=== PATIENT | female | born 1950 | race Caucasian/White ===

== ENCOUNTER 2020-12-01 14:05 | Inpatient (IN) | payer MEDICARE, BC ==
[~2020-12-01] VITALS: Ht 165.1 cm; Wt 66.0 kg
--- NOTE | 2020-12-01 14:36 | NUR ---
according to the family - he has been non-verbal for the last 3 weeks
--- NOTE | 2020-12-01 14:36 | NUR ---
daughter called 911; he mentation has been gettomh worse - she did not woke up today - lethatgic per report
[2020-12-01] MEDS ORDERED: IV NS 0.9% 500 ML BAG IV ONE (15:30)
--- NOTE | 2020-12-01 15:30 | NUR ---
MOVE SHEET SUBMITTED.
--- NOTE | 2020-12-01 15:53 | NUR ---
urine collected and sent to the lab
[2020-12-01] MEDS ORDERED: ABEM150T PO (16:08)
[2020-12-01] MEDS ORDERED: VENL25TA4 PO (16:08)
[2020-12-01] MEDS ORDERED: APIX5TAB PO (16:08)
[2020-12-01] MEDS ORDERED: MIRT-74 PO (16:08)
[2020-12-01] MEDS ORDERED: PANT40TA49 PO (16:08)
[2020-12-01] MEDS ORDERED: FULV250D2 IM (16:08)
[2020-12-01] MEDS ORDERED: METH1TAB69 MT (16:08)
[2020-12-01] MEDS ORDERED: ONDA4TAB11 PO (16:08)
[2020-12-01 16:11] LABS: BILIRUBIN,URINE NEGATIVE (NEGATIVE); COLOR,URINE YELLOW (YELLOW); LEUKOCYTE ESTERASE ,URINE MODERATE (NEGATIVE); NITRITE, URINE POSITIVE (NEGATIVE); PROTEIN,URINE TRACE mg/dl (NEGATIVE); UGLUCOSE NEGATIVE (NEGATIVE); UROBILINOGEN,URINE 0.2 EU/dL (0.2)
[2020-12-01 16:28] LABS: BACTERIA,URINE 2+ /HPF (None Seen); SQUAMOUS EPITHELIAL CELL,UR 0-2 /HPF (None Seen); WBC,URINE 51-80 /HPF (0-3)
[2020-12-01 16:52] LABS: BASOPHILS % (AUTO) 0.4 % (0.0-2.0); EOSINOPHILS % (AUTO) 0.5 % (0.0-6.0); LYMPHOCYTES # (AUTO) 0.6 K/uL (0.8-4.8); LYMPHOCYTES % (AUTO) 26.3 % (20.0-44.0); MEAN CORPUSCULAR HGB CONC 35 g/dl (31.0-36.0); MEAN CORPUSCULAR VOLUME 112 fL (82-100); MONOCYTES # (AUTO) 0.1 K/uL (0.1-1.30); MONOCYTES % (AUTO) 3.8 % (2.0-12.0); NEUTROPHILS # (AUTO) 1.6 K/uL (1.8-8.9); PLATELET COUNT (AUTO) 57 K/uL (150-450); WHITE BLOOD COUNT (AUTO) 2.3 K/uL (4.3-11.0)
[2020-12-01 16:57] LABS: RED BLOOD CELL COUNT(AUTO) 1.59 MIL/uL (4.0-5.2)
[2020-12-01 16:59] LABS: HEMATOCRIT 18 % (33-45); HEMOGLOBIN 6.3 g/dL (11.5-14.8)
[2020-12-01 17:04] LABS: CALCIUM, SERUM 8.1 mg/dL (8.5-10.1); CREATININE 0.6 mg/dL (0.6-1.3); POTASSIUM 3.6 mmol/L (3.5-5.1)
[2020-12-01 17:23] LABS: ALBUMIN 2.1 g/dL (3.4-5.0); BILIRUBIN,DIRECT 0.1 mg/dL (0.0-0.2); BILIRUBIN,TOTAL 0.5 mg/dL (0.2-1.0); TOTAL PROTEIN, SERUM 5.6 g/dL (6.4-8.2)
[2020-12-01 17:26] LABS: BAND % (MANUAL) 4 % (0.0-5.0); EOSINOPHILS % (MANUAL) 1 % (0-4); LYMPHOCYTES % (MANUAL) 25 % (16-48); MONOCYTES % (MANUAL) 2 % (0-11.0); NEUTROPHILS % (MANUAL) 67 (42-76); REACTIVE LYMPHOCYTES 1 % (0-0)
[2020-12-01] MEDS ORDERED: CEFTRIAXONE 1GM BAG (ER ONLY) 1 GM/50 ML PIGGYBACK IV ONE (17:30)
[2020-12-01] MEDS ORDERED: HYDROCODONE/APAP 5/325MG TABLET PO PRN (18:00)
[2020-12-01] MEDS ORDERED: MAGNESIUM HYDROXIDE 30 ML UDC PO PRN (18:00)
[2020-12-01] MEDS ORDERED: ONDANSETRON HCL/PF 4 MG/2 ML VIAL IVP PRN (18:00)
[2020-12-01] MEDS ORDERED: Z GUARD REMEDY 2 OZ OINT TP PRN (18:00)
[2020-12-01] MEDS ORDERED: ACETAMINOPHEN 325 MG TABLET PO PRN (18:00)
[2020-12-01] MEDS ORDERED: MAG HYDROX/AL HYDROX/SIMETH 30 ML UDC PO PRN (18:00)
--- NOTE | 2020-12-01 18:05 | NUR ---
GOT BED 329
--- NOTE | 2020-12-01 18:12 | NUR ---
REPORT GIVEN TO NURSE DAUGHERTY FROM MS/TELE FLOOR
[2020-12-01] MEDS ORDERED: CEFTRIAXONE 1GM BAG (ER ONLY) 50 ML IV ONE (18:13)
[2020-12-01] MEDS: PIPERACILLIN /TAZOBACTAM 4.5 G in IV D5W 50 ML IV SCH (19:04)
--- NOTE | 2020-12-01 19:33 | NUR ---
REPORT GIVEN TO NURSE ALVAREZ
--- NOTE | 2020-12-01 19:56 | NUR ---
PT WAS TRANSFERRED TO THIRD FLOOR UNDER ACLS
[2020-12-01] MEDS ORDERED: VANCOMYCIN 1 GM in IV D5W 250 ML IV SCH (20:00)
[2020-12-01 20:26] VITALS: BP 101/69
--- NOTE | 2020-12-01 20:30 | NUR ---
ADMISSION 70 years old female, unable to provide meaningful Hx. Ej/son in law at bedside. Patient is awake, non verbal. Skin checked done. Harry buttock open wounds, patient is Total care. Turned and repositioned, made comfortable in bed. On supplemental Oxygen at 2L via NC. Fall/ skin precaution maintained.
[2020-12-01 20:41] VITALS: BP 101/69
[2020-12-01] MEDS: VANCOMYCIN HCL 0.75 GM in IV D5W 250 ML IV SCH (21:27)
--- NOTE | 2020-12-01 21:59 | NUR ---
CONSENT BLOOD TRANSFUSION H/H 6.3 PLT 57 PRBC 1 unit was ordered. Called Jadon Hamilton/daughter, consented blood transfusion. Witnessed by GONZÁLEZ Jin.
[2020-12-01] MEDS ORDERED: MIRTAZAPINE 15 MG TABLET PO SCH (22:00)
--- NOTE | 2020-12-01 22:20 | NUR ---
REMERON NON ADMINISTERED Patient spit out Medication Remeron, medication wasted.
[2020-12-01 23:06] VITALS: BP 97/58
--- NOTE | 2020-12-01 23:17 | NUR ---
1 UNIT PRBC Blood transfusion administration record verified with 2RN. VS taken, recorded prior starting blood transfusion. Will monitor patient closely
[2020-12-01 23:31] VITALS: BP 108/60
--- NOTE | 2020-12-01 23:33 | NUR ---
MONITORING/BLOOD TRANSFUSING ON PROGRESS BP in the low 100's. Patient appears comfortable in bed, no moaning, no facial grimacing. Temp curved down. Temp 98.9F [place]. Will cont to monitor.
[2020-12-02] VITALS (7 sets, daily range): BP systolic 90–107; BP diastolic 51–58
[2020-12-02] MEDS: PIPERACILLIN /TAZOBACTAM 4.5 G in IV D5W 50 ML IV SCH ×4 (01:06→17:46)
--- NOTE | 2020-12-02 02:01 | NUR ---
BLOOD TRANSFUSION COMPLETED End of blood transfusion, no adverse side effect. Will cont to monitor closely.
--- NOTE | 2020-12-02 06:31 | NUR ---
END OF SHIFT REPORT Patient non verbal, open eyes. On supplemental Oxygen at 2L via NC. Sinus rhythm in the Tele monitor HR 79. BUE edema. RICHARD midline intact, on IV Vancomycin and Zosyn. Temp curved down. Turned and repositioned, alda buttocks open wound. Wound consult for wound management and treatment. s/p 1 unit PRBC with no adverse side effect. Fall, skin precaution maintained. Patient is Total care. Will endorse to oncoming RN.
--- NOTE | 2020-12-02 06:55 | NUR ---
FAMILY CONCERN Received call from Shahana/patients daughter. Per daughter she blended all the food and feeds her mother at home. Diet changed changed to Puree Soft per family's request. Also daughter states that Tumor marker was 27.29 and request to check here at the hospital. Will endorse to oncoming RN.
--- NOTE | 2020-12-02 07:12 | NUR ---
FACILITIES MAINTENANCE ENGINEER OPENING NOTE RECEIVED PATIENT ALERT AND NON VERBAL, PATIENT DOES NOT APPEAR TO BE IN PAIN AND DISCOMFORT AT THIS TIME. IV LINE AT RIGHT UPPER ARM MIDLINE AND RIGHT HAND G20 SALINE LOCK, PATENT AND INTACT, ON SALINE LOCK. WITH OXYGEN AT 2LPM VIA NASAL CANULA. SAFETY MEASURES ENSURED WITH BED LOCKED AND AT LOWEST POSITION. CALL LIGHT WITHIN REACH AT ALL TIMES. WILL CONTINUE TO MONITOR PATIENT.
[2020-12-02 07:21] LABS: THYROID STIMULATING HORMONE 3.043 uIU/mL (0.358-3.74)
[2020-12-02 07:22] LABS: CALCIUM, SERUM 8.1 mg/dL (8.5-10.1); CREATININE 0.7 mg/dL (0.6-1.3); MAGNESIUM 1.6 mg/dL (1.8-2.4); PHOSPHORUS 3.8 mg/dL (2.5-4.9); POTASSIUM 3.2 mmol/L (3.5-5.1)
[2020-12-02 07:30] LABS: BASOPHILS % (AUTO) 0.8 % (0.0-2.0); EOSINOPHILS % (AUTO) 0.7 % (0.0-6.0); HEMATOCRIT 23 % (33-45); HEMOGLOBIN 7.9 g/dL (11.5-14.8); LYMPHOCYTES # (AUTO) 0.5 K/uL (0.8-4.8); LYMPHOCYTES % (AUTO) 24.1 % (20.0-44.0); MEAN CORPUSCULAR HGB CONC 34 g/dl (31.0-36.0); MEAN CORPUSCULAR VOLUME 102 fL (82-100); MONOCYTES # (AUTO) 0.1 K/uL (0.1-1.30); MONOCYTES % (AUTO) 3.3 % (2.0-12.0); NEUTROPHILS # (AUTO) 1.5 K/uL (1.8-8.9); NEUTROPHILS % (AUTO) 71.1 % (43.0-81.0); RED BLOOD CELL COUNT(AUTO) 2.27 MIL/uL (4.0-5.2); WHITE BLOOD COUNT (AUTO) 2.1 K/uL (4.3-11.0)
[2020-12-02] MEDS ORDERED: PANTOPRAZOLE 40 MG TABLET.DR PO SCH (07:30)
--- NOTE | 2020-12-02 07:42 | NUR ---
WOUND CARE CONSULT: PT PRESENTS WITH MULTIPLE SKIN ISSUES INCLUDING SWELLING WITH DISCOLORATION TO RT ARM, DISCOLORATION TO CHEST (WITH SKIN TEAR RT CHEST)AND LEFT ARM, AND UNSTAGEABLE PRESSURE ULCER TO SACRUM WHICH EXTENDS TO BILATERAL BUTTOCKS, ALL PRESENT ON ADMISSION. RECOMMENDATIONS MADE FOR SKIN PROTECTION AND WOUND CARE. DISCUSSED WITH NURSING STAFF. DIETARY CONSULT IN PLACE. DR MIGUEL RODRIGUEZ NOTIFIED OF SURGICAL CONSULT FOR WOUND. MD IN AGREEMENT WITH PLAN OF CARE. FIRST STEP LOW AIRLOSS MATTRESS IS ON ORDER. Addendum: 12/02/20 at 0744 by OTTO ADAMES WNDNU Amended: Links added.
[2020-12-02 07:46] LABS: PLATELET COUNT (AUTO) 46 K/uL (150-450)
--- NOTE | 2020-12-02 08:05 | NUR ---
FRAME TENDER NOTE WITH PLATELET OF 46. DR. RIVERA NOTIFIED WITH NO NEW ORDER AT THIS TIME. WILL CONTINUE TO MONITOR PATIENT.
[2020-12-02] MEDS: VANCOMYCIN HCL 0.75 GM in IV D5W 250 ML IV SCH ×2 (08:28→20:44)
[2020-12-02] MEDS: PANTOPRAZOLE 40 MG TABLET.DR PO SCH ×2 (08:29→17:46)
[2020-12-02] MEDS: VENLAFAXINE 25 MG TABLET PO SCH (08:45)
[2020-12-02] MEDS: APIXABAN 5 MG TABLET PO SCH ×2 (09:00→17:00)
[2020-12-02] MEDS: HYDROGEL DRESSING 90 GM TUBE TP SCH (09:00)
--- NOTE | 2020-12-02 09:45 | NUR ---
RN NOTE ELIQUIS NTO ADMINISTERED BECAUSE OF LOW PLATELET. DR. RIVERA NOTIFIED. WILL WAIT FO MD INSTRUCTION.
[2020-12-02] MEDS ORDERED: POTASSIUM CHLORIDE 20 MEQ POWDER PACKET PO ONE (10:00)
[2020-12-02 10:59] LABS: BAND % (MANUAL) 2 % (0.0-5.0); LYMPHOCYTES % (MANUAL) 26 % (16-48); MONOCYTES % (MANUAL) 5 % (0-11.0); NEUTROPHILS % (MANUAL) 67 (42-76)
--- NOTE | 2020-12-02 11:00 | NUR ---
AUTOMATION CONTROLS SPECIALIST NOTE SEEN BY DR. RIVERA
[2020-12-02] MEDS: Magnesium 1GM/D5W 100ML PREMIX 100 ML IV SCH ×2 (11:13→13:07)
[2020-12-02] MEDS: POTASSIUM CL. PREMIX PERIPHER. 50 ML IV SCH ×4 (13:12→16:42)
--- NOTE | 2020-12-02 14:58 | NUR ---
SS note SS requested to discuss plan of care. Pt is a 70-year-old, female. CESARIO met with pt at her bedside in the med-surg unit. Pt was non-verbal and did not open her eyes. Pt was resting. CESARIO contacted pt's daughter, Shahana Hamilton, , to discuss pt's plan of care. Shahana stated that she lives with the pt at their private residence located at [address] [place] [address]. Pt is bedbound. Per daughter, pt currently has 24h caregivers as well as a wound care MD and RN who care for the pt. CESARIO discussed D/C plans with Shahana. Shahana does not want the pt to be D/C to a facility and for the pt to return to her prior living arrangement at home with 24h caregivers. No further SS intervention at this time, however, SS will remain available as needed.
--- NOTE | 2020-12-02 19:00 | NUR ---
CASH SURRENDER CALCULATOR CLOSING NOTE PATIENT ALERT AND NON VERBAL, PATIENT DOES NOT APPEAR TO BE IN PAIN AND DISCOMFORT AT THIS TIME. IV LINE AT RIGHT UPPER ARM MIDLINE AND RIGHT HAND G20 SALINE LOCK, PATENT AND INTACT, ON SALINE LOCK. WITH OXYGEN AT 2LPM VIA NASAL CANULA. SAFETY MEASURES ENSURED WITH BED LOCKED AND AT LOWEST POSITION. CALL LIGHT WITHIN REACH AT ALL TIMES. WILL ENDORSE PATIENT FOR CONTINUITY OF CARE.
--- NOTE | 2020-12-02 20:11 | NUR ---
SEAFOOD TECHNOLOGY SPECIALIST OPENING NOTE PT A/OX1; OPENS EYES; APHASIC. ON O2 2LPM VIA NC; TOLERATING WELL WITH NO SOB. EXTERNAL CARDIAC TELE MONITOR READS SR/ST 101. NO S/SX OF PAIN OR DISCOMFORT AT THIS TIME. RICHARD MIDLINE; PATENT AND INTACT. R HAND #20G S/; PATENT AND INTACT. ALL NEEDS MET. SAFETY MEASURES IN PLACE: BED IS LOWEST LOCKED POSITION, SR UPX2, CALL LIGHT WITHIN EASY REACH. PT IN STABLE CONDITION, WILL CONTINUE PLAN OF CARE.
[2020-12-02] MEDS: MIRTAZAPINE 30 MG PO SCH (22:40)
[2020-12-03] VITALS: BP 98/53
[2020-12-03] MEDS: PIPERACILLIN /TAZOBACTAM 4.5 G in IV D5W 50 ML IV SCH ×4 (00:06→17:19)
[2020-12-03 04:00] VITALS: BP 135/59
--- NOTE | 2020-12-03 06:11 | NUR ---
WATCHER AUTOMAT LONG GOODS CLOSING NOTE PT A/OX1; OPENS EYES; APHASIC. ON O2 2LPM VIA NC; TOLERATING WELL WITH NO SOB. EXTERNAL CARDIAC TELE MONITOR READS SR/ST 95. NO S/SX OF PAIN OR DISCOMFORT AT THIS TIME. RICHARD MIDLINE; PATENT AND INTACT. R HAND #20G S/; PATENT AND INTACT. ALL NEEDS MET. WOUND CARE TX KEPT C/D/I/. SAFETY MEASURES IN PLACE: BED IN LOWEST LOCKED POSITION, SR UPX2, CALL LIGHT WITHIN EASY REACH BED ALARM ON. PT IN STABLE CONDITION, WILL ENDORSE PLAN OF CARE TO ONCOMING MORNING RN.
[2020-12-03 06:34] LABS: BASOPHILS % (AUTO) 0.9 % (0.0-2.0); EOSINOPHILS % (AUTO) 0.8 % (0.0-6.0); HEMATOCRIT 23 % (33-45); HEMOGLOBIN 7.7 g/dL (11.5-14.8); LYMPHOCYTES # (AUTO) 0.6 K/uL (0.8-4.8); LYMPHOCYTES % (AUTO) 29.2 % (20.0-44.0); MEAN CORPUSCULAR HGB CONC 34 g/dl (31.0-36.0); MEAN CORPUSCULAR VOLUME 104 fL (82-100); MONOCYTES # (AUTO) 0.1 K/uL (0.1-1.30); NEUTROPHILS # (AUTO) 1.3 K/uL (1.8-8.9); NEUTROPHILS % (AUTO) 64.1 % (43.0-81.0); RED BLOOD CELL COUNT(AUTO) 2.17 MIL/uL (4.0-5.2)
[2020-12-03 06:41] LABS: PLATELET COUNT (AUTO) 44 K/uL (150-450)
--- NOTE | 2020-12-03 06:43 | NUR ---
PLT 44; WILL ENDORSE TO NEXT SHIFT
[2020-12-03 07:12] LABS: ALBUMIN 1.8 g/dL (3.4-5.0); BILIRUBIN,TOTAL 0.5 mg/dL (0.2-1.0); CREATININE 0.6 mg/dL (0.6-1.3); MAGNESIUM 2.2 mg/dL (1.8-2.4); TOTAL PROTEIN, SERUM 5.2 g/dL (6.4-8.2)
[2020-12-03 07:23] LABS: BAND % (MANUAL) 12 % (0.0-5.0); LYMPHOCYTES % (MANUAL) 19 % (16-48); MONOCYTES % (MANUAL) 6 % (0-11.0); NEUTROPHILS % (MANUAL) 63 (42-76)
--- NOTE | 2020-12-03 08:12 | NUR ---
CATERPILLAR OPERATOR OPENING NOTE RECEIVED PATIENT IN BED, ASLEEP. PATIENT ON O2 2LPM VIA NC; TOLERATING WELL WITH NO SOB. EXTERNAL CARDIAC TELE MONITOR READS SR 81. NO S/SX OF PAIN OR DISCOMFORT AT THIS TIME. RICHARD MIDLINE; PATENT AND INTACT. R HAND #20G S/; PATENT AND INTACT. SAFETY MEASURES IN PLACE: BED IN LOWEST LOCKED POSITION, SR UPX2, CALL LIGHT WITHIN EASY REACH BED ALARM ON. WILL CONTINUE TO MONITOR PATIENT.
[2020-12-03] MEDS: APIXABAN 5 MG TABLET PO SCH ×2 (08:33→16:09)
[2020-12-03] MEDS: VANCOMYCIN HCL 0.75 GM in IV D5W 250 ML IV SCH ×2 (08:37→19:35)
[2020-12-03] MEDS: HYDROGEL DRESSING 90 GM TUBE TP SCH (08:37)
[2020-12-03] MEDS: PANTOPRAZOLE 40 MG TABLET.DR PO SCH ×3 (08:37→16:20)
[2020-12-03] MEDS: VENLAFAXINE 25 MG TABLET PO SCH (08:45)
[2020-12-03] MEDS ORDERED: IOHEXOL-300 100 ML VIAL IV ONE (14:01)
--- NOTE | 2020-12-03 18:44 | NUR ---
PROP CUTTER CLOSING NOTE PATIENT IN BED, ASLEEP, EASILY AWAKEN. PATIENT ON O2 2LPM VIA NC; TOLERATING WELL WITH NO SOB. EXTERNAL CARDIAC TELE MONITOR READS SR 99. NO S/SX OF PAIN OR DISCOMFORT AT THIS TIME. RICHARD MIDLINE; PATENT AND INTACT. R HAND #20G S/; PATENT AND INTACT. ALL NEEDS ATTENDED DURING THE DAY. SAFETY MEASURES IN PLACE: BED IN LOWEST LOCKED POSITION, SR UPX2, CALL LIGHT WITHIN EASY REACH BED ALARM ON. WILL ENDORSE TO FRAME PULLEY MORTISING MACHINE OPERATOR NURSE FOR MERARI.
[2020-12-03 20:00] VITALS: BP 98/51
[2020-12-03] MEDS: MIRTAZAPINE 30 MG PO SCH (21:22)
[2020-12-04] VITALS: BP 101/62
[2020-12-04] MEDS: PIPERACILLIN /TAZOBACTAM 4.5 G in IV D5W 50 ML IV SCH ×5 (00:13→23:47)
[2020-12-04 04:00] VITALS: BP 101/49
--- NOTE | 2020-12-04 07:00 | NUR ---
Patient is alert to voice and touch, eyes open, can respond to simple questions. A&Ox1 only. Pt has been SR on monitor approx. 88bpm. RICHARD midline still intact and patent. No signs of respiratory or cardiac distress. denies pain or discomfort. kept clean and dry. Turned q2h, offloading. Tolerating IV ABX well.
[2020-12-04 07:39] LABS: BASOPHILS % (AUTO) 1.2 % (0.0-2.0); EOSINOPHILS % (AUTO) 1.2 % (0.0-6.0); HEMATOCRIT 23 % (33-45); HEMOGLOBIN 7.8 g/dL (11.5-14.8); LYMPHOCYTES # (AUTO) 0.5 K/uL (0.8-4.8); LYMPHOCYTES % (AUTO) 25.5 % (20.0-44.0); MEAN CORPUSCULAR HGB CONC 34 g/dl (31.0-36.0); MEAN CORPUSCULAR VOLUME 105 fL (82-100); MONOCYTES # (AUTO) 0.1 K/uL (0.1-1.30); MONOCYTES % (AUTO) 4.9 % (2.0-12.0); NEUTROPHILS # (AUTO) 1.3 K/uL (1.8-8.9); NEUTROPHILS % (AUTO) 67.2 % (43.0-81.0)
[2020-12-04 07:43] LABS: PLATELET COUNT (AUTO) 46 K/uL (150-450)
[2020-12-04 08:33] VITALS: BP 122/60
[2020-12-04] MEDS: VANCOMYCIN HCL 0.75 GM in IV D5W 250 ML IV SCH ×2 (08:41→20:27)
[2020-12-04] MEDS: VENLAFAXINE 25 MG TABLET PO SCH ×2 (08:42→10:54)
[2020-12-04] MEDS: PANTOPRAZOLE 40 MG TABLET.DR PO SCH ×3 (08:42→17:08)
[2020-12-04] MEDS: APIXABAN 5 MG TABLET PO SCH ×2 (08:50→16:14)
[2020-12-04 09:05] LABS: ALANINE AMINOTRANSFERASE 31 U/L (12-78); ALBUMIN 1.8 g/dL (3.4-5.0); ALKALINE PHOSPHATASE 37 U/L (46-116); ASPARTATE AMINOTRANSFERASE 12 U/L (15-37); BILIRUBIN,TOTAL 0.6 mg/dL (0.2-1.0); CALCIUM, SERUM 8.1 mg/dL (8.5-10.1); CARBON DIOXIDE 24 mmol/L (21-32); CHLORIDE 105 mmol/L (98-107); CREATININE 0.5 mg/dL (0.6-1.3); GLUCOSE 127 mg/dL (74-106); MAGNESIUM 2.1 mg/dL (1.8-2.4); PHOSPHORUS 2.9 mg/dL (2.5-4.9); POTASSIUM 3.1 mmol/L (3.5-5.1); SODIUM SERUM 138 mmol/L (136-145); TOTAL PROTEIN, SERUM 5.3 g/dL (6.4-8.2); UREA NITROGEN, BLOOD 5 mg/dL (7-18)
[2020-12-04] MEDS: HYDROGEL DRESSING 90 GM TUBE TP SCH (12:49)
[2020-12-04] MEDS: PROSOURCE / PROSTAT (PYXIS) 30 ML UDC PO SCH ×2 (16:21→17:00)
[2020-12-04 16:41] VITALS: BP 95/45
--- NOTE | 2020-12-04 19:00 | NUR ---
JIGMAKER CLOSING NOTE RECEIVED PATIENT ALERT AND NON VERBAL, PATIENT DOES NOT APPEAR TO BE IN PAIN AND DISCOMFORT AT THIS TIME. IV LINE AT RIGHT UPPER ARM MIDLINE AND RIGHT HAND G20 SALINE LOCK, PATENT AND INTACT, ON SALINE LOCK. WITH OXYGEN AT 2LPM VIA NASAL CANULA. SAFETY MEASURES ENSURED WITH BED LOCKED AND AT LOWEST POSITION. CALL LIGHT WITHIN REACH AT ALL TIMES. WILL ENDORSE PATIENT FOR CONTINUITY OF CARE.
--- NOTE | 2020-12-04 19:30 | NUR ---
VP HUMAN RESOURCES OPENING NOTE RECEIVED PT ALERT AND NON VERBAL. A/O X1. PT IS ON 2LPM O2 VIA NC, TOLERATING WELL. NO SOB OR S/S OF RESPIRATORY DISTRESS NOTED. PT ON EXTERNAL MALE IMPERSONATOR READING ST AT 101 BPM. PT HAS NO C/O OF PAIN SUCH FACIAL GRIMACING AT THIS TIME. IV ACCESS IN RICHARD MIDLINE AND RIGHT HAND #20 SALINE-LOCKED, INTACT AND PATENT. SAFETY PRECAUTIONS MAINTAINED. BED IN LOWEST LOCKED POSITION, HOB ELEVATED, SIDE RAILS UP X2. CALL LIGHT AND TABLE WITHIN REACH. WILL CONTINUE WITH PLAN OF CARE.
[2020-12-04 20:33] VITALS: BP 115/52
[2020-12-04] MEDS: MIRTAZAPINE 30 MG PO SCH (21:05)
[2020-12-05] VITALS (9 sets, daily range): BP systolic 110–142; BP diastolic 48–92
[2020-12-05] MEDS: PIPERACILLIN /TAZOBACTAM 4.5 G in IV D5W 50 ML IV SCH ×2 (05:17→12:20)
--- NOTE | 2020-12-05 06:48 | NUR ---
HUMAN FACTORS ERGONOMIST CLOSING NOTE PT IS IN BED, ALERT AND NON VERBAL. A/O X1. PT IS ON 2LPM O2 VIA NC, TOLERATING WELL. NO SOB OR S/S OF RESPIRATORY DISTRESS NOTED. PT ON EXTERNAL SOLAR ENERGY SPECIALIST READING ST AT 103 BPM. PT HAS NO C/O OF PAIN SUCH FACIAL GRIMACING AT THIS TIME. IV ACCESS IN RICHARD MIDLINE AND RIGHT HAND #20 SALINE-LOCKED, INTACT AND PATENT. ALL NEEDS HAVE BEEN MET. WOUND CARE ADMINISTERED PER ORDER. PT REPOSITIONED Q2H AND PRN. SAFETY PRECAUTIONS MAINTAINED AT ALL TIMES. BED IN LOWEST LOCKED POSITION, HOB ELEVATED, SIDE RAILS UP X2. CALL LIGHT AND TABLE WITHIN REACH. WILL ENDORSE TO ONCOMING NURSE FOR MERARI.
[2020-12-05 07:05] LABS: BASOPHILS % (AUTO) 0.8 % (0.0-2.0); EOSINOPHILS % (AUTO) 1.6 % (0.0-6.0); HEMATOCRIT 22 % (33-45); HEMOGLOBIN 7.6 g/dL (11.5-14.8); LYMPHOCYTES # (AUTO) 0.5 K/uL (0.8-4.8); LYMPHOCYTES % (AUTO) 24.2 % (20.0-44.0); MEAN CORPUSCULAR HGB CONC 34 g/dl (31.0-36.0); MEAN CORPUSCULAR VOLUME 104 fL (82-100); MONOCYTES # (AUTO) 0.1 K/uL (0.1-1.30); MONOCYTES % (AUTO) 4.6 % (2.0-12.0); NEUTROPHILS # (AUTO) 1.3 K/uL (1.8-8.9); NEUTROPHILS % (AUTO) 68.8 % (43.0-81.0); RED BLOOD CELL COUNT(AUTO) 2.17 MIL/uL (4.0-5.2)
--- NOTE | 2020-12-05 07:30 | NUR ---
LEFT VOICEMAIL FOR PT'S DTR, JAQUELINE, AT [phone], TO REQUEST VERBAL CONSENT VIA PHONE FOR PT TO HAVE MRI BRAIN WWO CONTRAST ON 12/05/20.
--- NOTE | 2020-12-05 07:43 | NUR ---
RN OPENING NOTES Patient seen comfortably lying in bed, no apparent distress noted, no grimacing, no SOB, respirations even and unlabored. Safety precautions in place, brakes locked, side rails up X 2, call light left within reach, will monitor closely for any changes.
--- NOTE | 2020-12-05 07:50 | NUR ---
Received a call from labs stating that patient's WBC is 1.9 and platelet 47, no apparent distress noted with patient, afebrile, no s/s of bleeding at this time, breathing even and unlabored, MD made aware, waiting for orders.
[2020-12-05 07:53] LABS: WHITE BLOOD COUNT (AUTO) 1.9 K/uL (4.3-11.0)
[2020-12-05 07:54] LABS: PLATELET COUNT (AUTO) 47 K/uL (150-450)
[2020-12-05] MEDS: VANCOMYCIN HCL 0.75 GM in IV D5W 250 ML IV SCH (08:18)
[2020-12-05] MEDS: APIXABAN 5 MG TABLET PO SCH ×2 (09:00→16:36)
[2020-12-05 09:59] LABS: ALBUMIN 1.9 g/dL (3.4-5.0); BILIRUBIN,TOTAL 0.6 mg/dL (0.2-1.0); CALCIUM, SERUM 8.5 mg/dL (8.5-10.1); CREATININE 0.6 mg/dL (0.6-1.3); MAGNESIUM 1.9 mg/dL (1.8-2.4); POTASSIUM 3.1 mmol/L (3.5-5.1); TOTAL PROTEIN, SERUM 5.5 g/dL (6.4-8.2)
[2020-12-05] MEDS: FOLIC ACID 1 MG TABLET PO SCH (10:44)
[2020-12-05] MEDS: VENLAFAXINE 25 MG TABLET PO SCH (10:44)
[2020-12-05] MEDS: PROSOURCE / PROSTAT (PYXIS) 30 ML UDC PO SCH ×3 (10:45→16:33)
[2020-12-05] MEDS: PANTOPRAZOLE 40 MG TABLET.DR PO SCH ×2 (10:48→16:33)
[2020-12-05 10:51] LABS: BAND % (MANUAL) 2 % (0.0-5.0); EOSINOPHILS % (MANUAL) 2 % (0-4); LYMPHOCYTES % (MANUAL) 22 % (16-48); MONOCYTES % (MANUAL) 10 % (0-11.0); NEUTROPHILS % (MANUAL) 64 (42-76)
[2020-12-05] MEDS: HYDROGEL DRESSING 90 GM TUBE TP SCH (10:57)
[2020-12-05] MEDS: MEROPENEM 1 G in IV NS 0.9% 100 ML IV SCH ×2 (13:53→21:22)
[2020-12-05] MEDS ORDERED: GADOTERATE MEGLUMINE 5 MMOL/10 ML VIAL IV ONE (15:25)
[2020-12-05] MEDS ORDERED: ACETAMINOPHEN 325 MG TABLET PO ONE (17:30)
[2020-12-05] MEDS ORDERED: diphenhydrAMINE HCL 50 MG/ML VIAL IV ONE (17:30)
--- NOTE | 2020-12-05 18:38 | NUR ---
Received a call from Dr. Lara stating to ask the daughter if she wants to changed POLST to DNR, DNI. Called daughter Shahana Hamilton (phone: [phone]) and she said she wants to change her mother's POLST to DNR / DNI, explained briefly what DNR/DNI means and she verbalized understanding and gratitude and wishes to proceed. Doctor Stew Askew made aware of the situation and he said okay to put order in. Name and number of daughter given to .
--- NOTE | 2020-12-05 18:55 | NUR ---
RN CLOSING NOTES Patient lying in bed, AO X 1, non-verbal, breathing even and unlabored, no SOB, no grimacing noted, no apparent distress noted. Eliquis not given today due to platelet level was 47, no s/s of bleeding, MD made aware of the situation. All needs anticipated, kept clean and dry, call light left within reach, safety precautions in place, brakes locked, side rails up X 2, will endorse to next shift for continuity of care.
[2020-12-05 19:23] LABS: D-DIMER 4.16 mg/L(FEU (0.17-0.50)
--- NOTE | 2020-12-05 19:33 | NUR ---
OPENING RN NOTES Patient lying in bed, AO X 1, non-verbal, breathing even and unlabored, no SOB, no grimacing noted, no apparent distress noted. All needs anticipated, kept clean and dry, call light left within reach, safety precautions in place, brakes locked, side rails up X 2, will CONTINUE TO MONITOR.
[2020-12-05] MEDS: HEPARIN INFUSION/D5W 500 ML IV PRN (20:30)
--- NOTE | 2020-12-05 20:37 | NUR ---
RN NOTES CONTACTED DR DIAZ REGARDING HEPARIN DRIP TO DUE PT LOW APTT DR DIAZ WAS ASKED IF WE SHOULD GIVE THE PRBC AND PLT BEFORE STARTING HEPARIN PER DR DIAZ OKAY TO START HEPARIN FIRST AND GIVE BLOOD ITS AVAILABLE. HEPARIN DRIP. WILL CONTINUE TO MONITOR. Addendum: 12/05/20 at 2121 by LUDWIG STAHL RN HEPARIN DRIP STARTED ON THE WRIST NOT THE UPPER ARM. WILL CONTINUE TO MONITOR.
[2020-12-05 22:06] LABS: OCCULT BLOOD STOOL NEGATIVE (NEGATIVE)
[2020-12-05] MEDS ORDERED: diphenhydrAMINE HCL 50 MG/ML VIAL ONE (22:08)
[2020-12-05] MEDS: MIRTAZAPINE 30 MG PO SCH (23:46)
--- NOTE | 2020-12-05 23:54 | NUR ---
RN NOTES BLOOD TRANSFUSION STARTED. PT INITIAL VITAL SIGNS TAKEN WITHIN NORMAL LIMITS SCHEDULED MEDICATIONS NEED TO BE GIVEN BEFORE TRANSFUSION WERE ADMINISTERED AND TOLERATED WELL. PT WAS ALSO STARTED ON A HEPARIN TRIP AT 2235. PT IS ALSO DUE FOR A PLATELET TRANSFUSION PLATELETS NOT AVAILABLE AT THIS TIME. WILL CONTINUE TO MONITOR PT THROUGHOUT TRANSFUSION AND SHIFT AND MONITORED FOR ANY ADVERSE EFFECTS.
[2020-12-06] VITALS (10 sets, daily range): BP systolic 111–142; BP diastolic 54–83
--- NOTE | 2020-12-06 02:05 | NUR ---
RN NOTES BLOOD TRANSFUSION DONE. VITAL SIGN WITHIN NORMAL LIMITS AFEBRILE AT THIS TIME WILL. CONTINUE TO MONITOR.
[2020-12-06] MEDS: MEROPENEM 1 G in IV NS 0.9% 100 ML IV SCH ×3 (05:13→21:58)
--- NOTE | 2020-12-06 06:36 | NUR ---
RN NOTES Patient lying in bed, AO X 1, non-verbal, breathing even and unlabored, no SOB, no grimacing noted, no apparent distress noted. All needs anticipated, kept clean and dry, call light left within reach, safety precautions in place, brakes locked, side rails up X 2. PT CURRENTLY ON HEPARIN DRIP RUNNING AT 1250 UNITS/HR AWAITING APTT RESULT TO RECALCULATE DOSEWILL ENDORSE TO DYA SHIFT NURSE., WILL ENDORSE CARE TO DAY SHIFT NURSE.
[2020-12-06 07:01] LABS: BASOPHILS % (AUTO) 1.4 % (0.0-2.0); EOSINOPHILS % (AUTO) 1.3 % (0.0-6.0); HEMATOCRIT 26 % (33-45); HEMOGLOBIN 8.9 g/dL (11.5-14.8); LYMPHOCYTES # (AUTO) 0.6 K/uL (0.8-4.8); LYMPHOCYTES % (AUTO) 24.3 % (20.0-44.0); MEAN CORPUSCULAR HGB CONC 35 g/dl (31.0-36.0); MEAN CORPUSCULAR VOLUME 99 fL (82-100); MONOCYTES # (AUTO) 0.1 K/uL (0.1-1.30); MONOCYTES % (AUTO) 5.4 % (2.0-12.0); NEUTROPHILS # (AUTO) 1.6 K/uL (1.8-8.9); NEUTROPHILS % (AUTO) 67.6 % (43.0-81.0); WHITE BLOOD COUNT (AUTO) 2.3 K/uL (4.3-11.0)
[2020-12-06 07:25] LABS: ALANINE AMINOTRANSFERASE 32 U/L (12-78); ALBUMIN 1.8 g/dL (3.4-5.0); ALKALINE PHOSPHATASE 36 U/L (46-116); ASPARTATE AMINOTRANSFERASE 14 U/L (15-37); BILIRUBIN,TOTAL 0.5 mg/dL (0.2-1.0); CALCIUM, SERUM 8.5 mg/dL (8.5-10.1); CARBON DIOXIDE 26 mmol/L (21-32); CHLORIDE 103 mmol/L (98-107); CREATININE 0.5 mg/dL (0.6-1.3); GLUCOSE 139 mg/dL (74-106); MAGNESIUM 1.8 mg/dL (1.8-2.4); PHOSPHORUS 3.1 mg/dL (2.5-4.9); SODIUM SERUM 136 mmol/L (136-145); TOTAL PROTEIN, SERUM 5.4 g/dL (6.4-8.2); UREA NITROGEN, BLOOD 5 mg/dL (7-18)
--- NOTE | 2020-12-06 07:30 | NUR ---
ANGLESMITH HELPER NOTES PT IN BED, RESTING, OPENS EYES, NON VERBAL, NO SIGN OF PAIN, NOT IN DISTRESS, ON HEPARIN DRIP, MONITORED FOR BLEEDING, KEPT WARM AND COMFORTABLE IN BED.
[2020-12-06 07:42] LABS: PLATELET COUNT (AUTO) 49 K/uL (150-450)
[2020-12-06 08:07] LABS: IMMUNOGLOBULIN A, SERUM 65 mg/dL (64-422); IMMUNOGLOBULIN G, SERUM 466 mg/dL (586-1602); IMMUNOGLOBULIN M, SERUM 49 mg/dL (26-217)
[2020-12-06] MEDS: VENLAFAXINE 25 MG TABLET PO SCH (08:48)
[2020-12-06] MEDS: PROSOURCE / PROSTAT (PYXIS) 30 ML UDC PO SCH ×3 (08:48→16:19)
[2020-12-06] MEDS: HYDROGEL DRESSING 90 GM TUBE TP PRN (08:48)
[2020-12-06] MEDS: PANTOPRAZOLE 40 MG TABLET.DR PO SCH ×2 (08:48→16:19)
[2020-12-06] MEDS: FOLIC ACID 1 MG TABLET PO SCH (08:48)
[2020-12-06 09:07] LABS: CARBOHYDRATE AG 19-9 11 U/mL (0-35)
[2020-12-06] MEDS: HYDROGEL DRESSING 90 GM TUBE TP SCH (09:18)
[2020-12-06 10:07] LABS: *ANA ANTI-CENTROMERE B AB <0.2 AI (0.0-0.9); *ANA ANTI-DNA(DS) AB, QN <1 IU/mL (0-9); *ANA ANTI-JO-1 <0.2 AI (0.0-0.9); *ANA ANTICHROMATIN ANTIBODY <0.2 AI (0.0-0.9); *ANA RNP ANTIBODIES <0.2 AI (0.0-0.9); *ANA SJOGREN'S ANTI-SS-A <0.2 AI (0.0-0.9); *ANA SJOGREN'S ANTI-SS-B <0.2 AI (0.0-0.9); *ANAANTI-SCLERODERMA-70 AB <0.2 AI (0.0-0.9); *ANASMITH AB <0.2 AI (0.0-0.9)
[2020-12-06] MEDS ORDERED: POTASSIUM CHLORIDE 10 MEQ/50 ML PREMIXED IVPB FOR PERIPHERAL LINE IV SCH (11:30)
[2020-12-06] MEDS ORDERED: POTASSIUM CHLORIDE 20 MEQ TAB.PRT.SR PO SCH (11:30)
[2020-12-06 13:01] LABS: BAND % (MANUAL) 1 % (0.0-5.0); EOSINOPHILS % (MANUAL) 1 % (0-4); LYMPHOCYTES % (MANUAL) 31 % (16-48); MONOCYTES % (MANUAL) 4 % (0-11.0); NEUTROPHILS % (MANUAL) 63 (42-76)
[2020-12-06] MEDS: POTASSIUM CL. PREMIX PERIPHER. 50 ML IV SCH ×6 (15:31→21:57)
[2020-12-06] MEDS: HEPARIN INFUSION/D5W 500 ML IV PRN (18:04)
--- NOTE | 2020-12-06 18:31 | NUR ---
PRACTICING DERMATOLOGIST NOTES PT IN BED, AWAKE, NON VERBAL, NO SIGN OF PAIN, NOT IN DISTRESS, WITH ONGOING HEPARIN INFUSION, NO S/S OF BLEEDING, VISITED BY FAMILY, ASSISTED WITH MEALS, SEEN BY DR. BAILEY TODAY, TURNED AND REPOSITIONED Q2 HOURS, KEPT CLEAN, DRY AND COMFORTABLE.
--- NOTE | 2020-12-06 19:42 | NUR ---
RN NOTE RECEIVED ORDERS FROM DR. SCHROEDER TO ADMINISTER KEPPRA 1000MG/10ML IV X1, THEN KEPPRA 500MG/5ML IV Q12H. ORDERS READ BACK, ENTERED, AND CARRIED OUT. WILL CONTINUE TO MONITOR PT CLOSELY.
--- NOTE | 2020-12-06 20:00 | NUR ---
COLLECTION CLERK OPENING NOTE RECEIVED PT AWAKE IN BED. A/O X1, NON-VERBAL. PT IS ON 2LPM O2 VIA NC TOLERATING WELL. NO SOB OR S/S OF RESPIRATORY DISTRESS NOTED. PT HAS NO S/O PAIN SUCH FACIAL GRIMACING NOTE. PT ON EXTERNAL QUENCHING CAR OPERATOR READING ST AT 102 BPM. IV ACCESS IN RICHARD MIDLINE AND RIGHT HAND #20 WITH ONGOING HEPARIN INFUSION. NO S/S OF BLEEDING NOTED. SAFETY PRECAUTIONS MAINTAINED. BED IN LOWEST LOCKED POSITION, HOB ELEVATED, SIDE RAILS UP X2. CALL LIGHT AND TABLE WITHIN REACH. WILL CONTINUE WITH PLAN OF CARE.
--- NOTE | 2020-12-06 20:40 | NUR ---
RN NOTE PT'S TEMP NOTED AT 100.4. COOLING MEASURES RENDERED. WILL CONTINUE TO MONITOR.
[2020-12-06] MEDS ORDERED: LEVETIRACETAM (500MG) 1,000 MG in IV NS 0.9% 100 ML IV ONE (21:00)
--- NOTE | 2020-12-06 21:30 | NUR ---
RN NOTE RECHECKED PT'S TEMP. TEMP NOTED AT 98.9. WILL CONTINUE TO MONITOR PT CLOSELY.
[2020-12-06] MEDS: MIRTAZAPINE 30 MG PO SCH (21:34)
[2020-12-07 00:03] VITALS: BP 126/58
[2020-12-07 03:39] VITALS: BP 111/61
[2020-12-07] MEDS: MEROPENEM 1 G in IV NS 0.9% 100 ML IV SCH ×3 (04:05→20:23)
[2020-12-07 06:41] LABS: CALCIUM, SERUM 8.7 mg/dL (8.5-10.1); CREATININE 0.6 mg/dL (0.6-1.3); POTASSIUM 3.8 mmol/L (3.5-5.1)
--- NOTE | 2020-12-07 07:00 | NUR ---
AUDIO DIRECTOR CLOSING NOTE PT IS AWAKE IN BED. A/O X1, NON-VERBAL. PT IS ON 2LPM O2 VIA NC TOLERATING WELL. NO SOB OR S/S OF RESPIRATORY DISTRESS NOTED. PT HAS NO S/O PAIN SUCH FACIAL GRIMACING NOTE. PT ON EXTERNAL LOADING UNIT OPERATOR READING ST AT 101 BPM. IV ACCESS IN RICHARD MIDLINE AND RIGHT HAND #20 WITH ONGOING HEPARIN INFUSION. NO S/S OF BLEEDING NOTED. ALL NEEDS HAVE BEEN MET. SAFETY PRECAUTIONS MAINTAINED AT ALL TIMES. BED IN LOWEST LOCKED POSITION, HOB ELEVATED, SIDE RAILS UP X2. CALL LIGHT AND TABLE WITHIN REACH. WILL ENDORSE TO ONCOMING NURSE FOR MERARI.
[2020-12-07 07:07] LABS: *SPE A/G RATIO 0.8 (0.7-1.7); *SPE ALPHA-1-GLOBULIN 0.3 g/dL (0.0-0.4); *SPE ALPHA-2-GLOBULIN 0.9 g/dL (0.4-1.0); *SPE M-SPIKE Not Observed g/dL (Not Observed)
--- NOTE | 2020-12-07 07:44 | NUR ---
RN OPENING NOTES Patient seen comfortably lying in bed, no apparent distress noted, no grimacing, no SOB, breathing even and unlabored. Call light left within reach, safety precautions in place, brakes locked, side rails up X 2, will monitor closely for any changes
[2020-12-07 08:00] VITALS: BP 146/58
[2020-12-07] MEDS: LEVETIRACETAM (500MG) 500 MG in IV NS 0.9% 100 ML IV SCH ×2 (08:11→18:00)
[2020-12-07 09:05] LABS: BASOPHILS % (AUTO) 1.4 % (0.0-2.0); EOSINOPHILS % (AUTO) 1.3 % (0.0-6.0); HEMATOCRIT 28 % (33-45); HEMOGLOBIN 9.3 g/dL (11.5-14.8); LYMPHOCYTES # (AUTO) 0.6 K/uL (0.8-4.8); LYMPHOCYTES % (AUTO) 23.3 % (20.0-44.0); MEAN CORPUSCULAR HGB CONC 34 g/dl (31.0-36.0); MEAN CORPUSCULAR VOLUME 99 fL (82-100); MONOCYTES # (AUTO) 0.2 K/uL (0.1-1.30); MONOCYTES % (AUTO) 7.1 % (2.0-12.0); NEUTROPHILS # (AUTO) 1.8 K/uL (1.8-8.9); NEUTROPHILS % (AUTO) 66.9 % (43.0-81.0); PLATELET COUNT (AUTO) 83 K/uL (150-450); RED BLOOD CELL COUNT(AUTO) 2.77 MIL/uL (4.0-5.2); WHITE BLOOD COUNT (AUTO) 2.7 K/uL (4.3-11.0)
[2020-12-07] MEDS: FOLIC ACID 1 MG TABLET PO SCH (09:34)
[2020-12-07] MEDS: PROSOURCE / PROSTAT (PYXIS) 30 ML UDC PO SCH ×3 (09:34→17:20)
[2020-12-07] MEDS: VENLAFAXINE 25 MG TABLET PO SCH (09:34)
[2020-12-07] MEDS: PANTOPRAZOLE 40 MG TABLET.DR PO SCH ×2 (09:34→17:20)
[2020-12-07] MEDS: HYDROGEL DRESSING 90 GM TUBE TP SCH (09:40)
--- NOTE | 2020-12-07 11:46 | NUR ---
HOOKER MACHINE TENDER NOTES PT IN BED, RESTING, NO SIGN OF PAIN OR DISTRESS, PT HAS STAGE 3 SACRAL WOUNDS AT THE LEFT BUTTOCKS MEASURING 2CM X 3CM AND AT THE RIGHT BUTTOCKS WHICH MEASURES 2.5CM X 1.5 CM, WITH THE FOLLOWING TREATMENT ORDERS, CLEANSE WITH NS, PAT DRY, APPLY Z GUARD TO PERIWOUND AREA, APPLY HYDROGEL TO OPEN AREAS, COVER WITH FOAM DRESSING, CHANGED DAILY AND NEEDED.
[2020-12-07 16:00] VITALS: BP 106/70
[2020-12-07] MEDS ORDERED: FUROSEMIDE 40 MG/4 ML VIAL IV ONE (16:00)
[2020-12-07] MEDS: ALBUMIN 25% 25 GM in PREMIX 1 EA IV SCH (17:20)
[2020-12-07] MEDS: HEPARIN INFUSION/D5W 500 ML IV PRN (17:42)
--- NOTE | 2020-12-07 18:00 | NUR ---
HYDROELECTRIC PLANT MECHANICAL ENGINEER NOTES HARLEY DELGADILLO HELD PER FAMILY'S REQUEST, DR. REDD AWARE.
--- NOTE | 2020-12-07 18:32 | NUR ---
RN CLOSING NOTES Patient lying in bed, AO X 1, non-verbal, no apparent distress noted, breathing even and unlabored, no SOB, no grimacing noted. Patient remains on heparin drip, tolerating well, no s/s of bleeding during shift. Patient turned and repositioned frequently, all needs anticipated, kept clean and dry, call light left within reach, safety precautions in place, brakes locked, side rails up X 2, will endorse to next shift for continuity of care.
--- NOTE | 2020-12-07 19:20 | NUR ---
CONTINUITY OF CARE Patient in bed, son at bedside trying to feed patient. Patient non verbal, on Oxygen support. BUE edema, RICHARD midline intact with good blood return. Sinus Tach in the Tele monitor. On Heparin drip, no symptoms of active bleeding. RN report to Hold Keppra medication as per Family's request. Patient DNR/DNR status. Turned and repositioned, will cont to provide care.
[2020-12-07 20:00] VITALS: BP 113/62
[2020-12-07 20:30] VITALS: BP 113/62
[2020-12-07] MEDS: MIRTAZAPINE 30 MG PO SCH (22:00)
--- NOTE | 2020-12-07 22:45 | NUR ---
PATIENT REFUSED MEDICATION Patient refused to open mouth for Mirtazepine medication. Education given, patient non verbal, mentation appears to be impaired. Unable to give medication at this time. Medication wasted.
[2020-12-08] VITALS (8 sets, daily range): BP systolic 99–113; BP diastolic 51–61
[2020-12-08] MEDS: ACETAMINOPHEN 650 MG/SUPP.RECT RC PRN (01:44)
--- NOTE | 2020-12-08 02:00 | NUR ---
COMFORT Low grade Temp 99.6 Tylenol RC given for comfort. As per son patient has Fever.
[2020-12-08] MEDS: ALBUMIN 25% 25 GM in PREMIX 1 EA IV SCH (04:32)
--- NOTE | 2020-12-08 05:11 | NUR ---
HEPARIN DRIP 950 UNITS/HR 19ML/HR APPT 62.2 No change per Heparin protocol. Next PTT 12/09/20 at 0400am.
[2020-12-08] MEDS: MEROPENEM 1 G in IV NS 0.9% 100 ML IV SCH ×3 (05:30→20:22)
[2020-12-08] MEDS: LEVETIRACETAM (500MG) 500 MG in IV NS 0.9% 100 ML IV SCH ×2 (05:33→17:19)
--- NOTE | 2020-12-08 05:34 | NUR ---
HOLD KEPPRA IV Keppra am dose held per Familys request, MD aware. See miscellaneous nursing communication order.
--- NOTE | 2020-12-08 06:01 | NUR ---
END OF SHIFT REPORT Patient is Total care, non verbal. Remains on supplemental Oxygen at 2L via NC. Looks fatigue. Sinus rhythm HR 80's in the Tele monitor. On IV Merrem. Temp max 99.6F, now 98.6F. BUE edema. RICHARD midline intact with good blood return. On Heparin drip at 950 units/hr 19ml/hr. No symptoms of active bleeding. Turned and repositioned, patient had BM this shift and voiding urine. Fall; skin precaution maintained.
--- NOTE | 2020-12-08 07:30 | NUR ---
CHLORINE CELLS OPERATOR OPENING NOTES RECEIVED PT IN BED, NON-VERBAL. PT IS ON 2LPM O2 VIA NC TOLERATING WELL. NO SOB OR S/S OF RESPIRATORY DISTRESS NOTED. PT HAS NO S/O PAIN SUCH FACIAL GRIMACING NOTED. PT ON EXTERNAL MIDDLE SCHOOL SPANISH TEACHER READING ST AT 121 BPM. IV ACCESS IN RICHARD MIDLINE AND RIGHT HAND #20 WITH ONGOING HEPARIN INFUSION AT 19 ML/HR. NO S/S OF BLEEDING NOTED. SAFETY PRECAUTIONS MAINTAINED. BED IN LOWEST LOCKED POSITION, HOB ELEVATED, SIDE RAILS UP X2. CALL LIGHT AND TABLE WITHIN REACH. WILL CONTINUE TO MONITOR ACCORDINGLY.
[2020-12-08] MEDS ORDERED: APIXABAN 5 MG TABLET PO SCH (09:00)
--- NOTE | 2020-12-08 09:16 | NUR ---
RN NOTES PATIENT'S AWAKE, SIGNIFICANT OTHER WAS ABLE TO FEED PATIENT WITH MASHED POTATO, DUE MEDS GIVEN, ASPIRATION PRECAUTIONS OBSERVED. PATIENT ABLE TO TOLERATE FOOD, NO S/SX OF ASPIRATION NOTED. KEPT HOB ELEVATED.
[2020-12-08] MEDS: HYDROGEL DRESSING 90 GM TUBE TP SCH (09:17)
[2020-12-08] MEDS: VENLAFAXINE 25 MG TABLET PO SCH (09:31)
[2020-12-08] MEDS: FOLIC ACID 1 MG TABLET PO SCH (09:31)
[2020-12-08] MEDS: PANTOPRAZOLE 40 MG TABLET.DR PO SCH ×2 (09:31→16:47)
[2020-12-08] MEDS: PROSOURCE / PROSTAT (PYXIS) 30 ML UDC PO SCH ×3 (09:35→16:59)
[2020-12-08 10:00] LABS: BASOPHILS % (AUTO) 1.3 % (0.0-2.0); EOSINOPHILS % (AUTO) 1.3 % (0.0-6.0); HEMATOCRIT 25 % (33-45); HEMOGLOBIN 8.5 g/dL (11.5-14.8); LYMPHOCYTES # (AUTO) 0.6 K/uL (0.8-4.8); LYMPHOCYTES % (AUTO) 30.5 % (20.0-44.0); MEAN CORPUSCULAR HGB CONC 34 g/dl (31.0-36.0); MEAN CORPUSCULAR VOLUME 99 fL (82-100); MONOCYTES # (AUTO) 0.2 K/uL (0.1-1.30); MONOCYTES % (AUTO) 8.3 % (2.0-12.0); NEUTROPHILS # (AUTO) 1.1 K/uL (1.8-8.9); NEUTROPHILS % (AUTO) 58.6 % (43.0-81.0); PLATELET COUNT (AUTO) 74 K/uL (150-450); RED BLOOD CELL COUNT(AUTO) 2.52 MIL/uL (4.0-5.2)
--- NOTE | 2020-12-08 12:25 | NUR ---
RN NOTES PATIENT IS ASLEEP.
[2020-12-08 12:32] LABS: ALANINE AMINOTRANSFERASE 30 U/L (12-78); ALBUMIN 2.9 g/dL (3.4-5.0); ALKALINE PHOSPHATASE 37 U/L (46-116); ASPARTATE AMINOTRANSFERASE 16 U/L (15-37); BILIRUBIN,TOTAL 0.7 mg/dL (0.2-1.0); CARBON DIOXIDE 30 mmol/L (21-32); CHLORIDE 102 mmol/L (98-107); CREATININE 0.5 mg/dL (0.6-1.3); GLUCOSE 109 mg/dL (74-106); POTASSIUM 3.5 mmol/L (3.5-5.1); SODIUM SERUM 140 mmol/L (136-145); TOTAL PROTEIN, SERUM 5.9 g/dL (6.4-8.2); UREA NITROGEN, BLOOD 4 mg/dL (7-18)
[2020-12-08] MEDS: DABIGATRAN ETEXILATE MESYLATE 150 MG CAPSULE PO SCH (16:48)
--- NOTE | 2020-12-08 16:50 | NUR ---
RN NOTES PATIENT IS AWAKE, DAUGHTER AT BEDSIDE, DAUGHTER WAS ABLE TO FEED PATIENT SOME YOGURT AND THICKENED SOUP, ASPIRATION PRECAUTIONS OBSERVED. KEPT HOB ELEVATED.
--- NOTE | 2020-12-08 16:56 | NUR ---
REFUSED MEDICATION PATIENT REFUSED TO OPEN MOUTH FOR PRADAXA AND PROTONIX. DAUGHTER AT BEDSIDE. EDUCATION GIVEN. MEDICATIONS WASTED.
--- NOTE | 2020-12-08 17:19 | NUR ---
HOLD KEPPRA IV KEPPRA 1800 DOSE HELD PER FAMILY'S REQUEST. SEE MISCELLANEOUS NURSING COMMUNICATION ORDER.
--- NOTE | 2020-12-08 20:00 | NUR ---
Patient open eyes to loud touch or voice but is non-verbal at this time. No clinical indications of pain. Patient is Sinus tachy on monitor with rate of 106. O2 97% on 2L NC. Family member at bedside. No signs of respiratory or cardiac distress at this time. Cap refill <3 seconds to extremities. Will continue to monitor closely.
[2020-12-08] MEDS: MIRTAZAPINE 30 MG PO SCH ×2 (21:07→21:56)
--- NOTE | 2020-12-08 21:16 | NUR ---
Patient refused to open mouth for Remeron ODT. alert and opening eyes but not oriented or able to understand importance. mouth tightly closed. non-admin
[2020-12-09] VITALS: BP_SYST 104; BP_SYST 113; BP_DIAS 53; BP_DIAS 55
[2020-12-09 04:00] VITALS: BP 117/51
[2020-12-09] MEDS: MEROPENEM 1 G in IV NS 0.9% 100 ML IV SCH ×3 (04:27→20:45)
[2020-12-09 04:46] LABS: BASOPHILS % (AUTO) 1.2 % (0.0-2.0); EOSINOPHILS % (AUTO) 1.5 % (0.0-6.0); HEMATOCRIT 26 % (33-45); HEMOGLOBIN 8.9 g/dL (11.5-14.8); LYMPHOCYTES # (AUTO) 0.5 K/uL (0.8-4.8); LYMPHOCYTES % (AUTO) 22.6 % (20.0-44.0); MEAN CORPUSCULAR HGB CONC 34 g/dl (31.0-36.0); MEAN CORPUSCULAR VOLUME 100 fL (82-100); MONOCYTES # (AUTO) 0.2 K/uL (0.1-1.30); MONOCYTES % (AUTO) 8.7 % (2.0-12.0); NEUTROPHILS # (AUTO) 1.6 K/uL (1.8-8.9); RED BLOOD CELL COUNT(AUTO) 2.65 MIL/uL (4.0-5.2); WHITE BLOOD COUNT (AUTO) 2.4 K/uL (4.3-11.0)
[2020-12-09 04:49] LABS: PLATELET COUNT (AUTO) 85 K/uL (150-450)
[2020-12-09 05:01] LABS: ALANINE AMINOTRANSFERASE 34 U/L (12-78); ALBUMIN 2.7 g/dL (3.4-5.0); ALKALINE PHOSPHATASE 40 U/L (46-116); ASPARTATE AMINOTRANSFERASE 19 U/L (15-37); BILIRUBIN,TOTAL 0.7 mg/dL (0.2-1.0); CALCIUM, SERUM 9.3 mg/dL (8.5-10.1); CARBON DIOXIDE 31 mmol/L (21-32); CHLORIDE 104 mmol/L (98-107); CREATININE 0.5 mg/dL (0.6-1.3); GLUCOSE 93 mg/dL (74-106); POTASSIUM 3.5 mmol/L (3.5-5.1); SODIUM SERUM 140 mmol/L (136-145); UREA NITROGEN, BLOOD 7 mg/dL (7-18)
[2020-12-09] MEDS: LEVETIRACETAM (500MG) 500 MG in IV NS 0.9% 100 ML IV SCH (06:00)
--- NOTE | 2020-12-09 06:21 | NUR ---
daryl held per family wishes.
--- NOTE | 2020-12-09 07:09 | NUR ---
Patient has been sleeping intermittently throughout night. When awake eyes are open only and patient moves extremities occasionally. Patient kept clean and dry. Turned q2h. Bed bath given. Wound care provided. no clinical indications of pain. ST on monitor 105-120. Tolerating IV ABX well. No s/s of bleeding.
--- NOTE | 2020-12-09 07:47 | NUR ---
VOLUNTEER SERVICES ASSISTANT OPENING NOTES RECEIVED PATIENT IN BED, NON-VERBAL. ON 2L O2 VIA NASAL CANNULA - TOLERATING WELL. NO SOB NOTED. NO DISTRESS/DISCOMFORT NOTED. ON EXTERNAL CRIMINAL JUSTICE INSTRUCTOR READING - SR 90. IV ACCESS TO RIGHT UA - MIDLINE AND RIGHT HAND #20 - BOTH PATENT AND INTACT. SAFETY MEASURES IN PLACE. CALL LIGHT WITHIN REACH. WILL CONTINUE TO MONITOR.
[2020-12-09 08:00] VITALS: BP 115/64
[2020-12-09] MEDS: PROSOURCE / PROSTAT (PYXIS) 30 ML UDC PO SCH ×3 (09:01→16:32)
[2020-12-09] MEDS: DABIGATRAN ETEXILATE MESYLATE 150 MG CAPSULE PO SCH ×2 (09:02→16:32)
[2020-12-09] MEDS: FOLIC ACID 1 MG TABLET PO SCH (09:02)
[2020-12-09] MEDS: VENLAFAXINE 25 MG TABLET PO SCH (09:03)
[2020-12-09] MEDS: PANTOPRAZOLE 40 MG TABLET.DR PO SCH ×2 (09:03→16:32)
[2020-12-09] MEDS: HYDROGEL DRESSING 90 GM TUBE TP PRN (09:55)
[2020-12-09] MEDS: HYDROGEL DRESSING 90 GM TUBE TP SCH (09:56)
--- NOTE | 2020-12-09 11:00 | NUR ---
DECORATIVE ENGRAVER APPRENTICE NOTE UNABLE TO ADMINISTER MEDICATION TO PATIENT. JAW IS CLENCHED DOWN AND WILL NOT OPEN FOR FOOD OR MEDICATION. CHARGE NURSE AWARE.
[2020-12-09] MEDS: ACETAMINOPHEN 650 MG/SUPP.RECT RC PRN (12:43)
[2020-12-09 16:00] VITALS: BP 107/57
--- NOTE | 2020-12-09 16:32 | NUR ---
SENIOR LANDSCAPE ARCHITECT NOTE PATIENT CONTINUES TO CLENCH JAW TOGETHER AND NOT OPEN FOR FOOD OR MEDICATION. UNABLE TO ADMINISTER.
--- NOTE | 2020-12-09 17:30 | NUR ---
COMMUNICATIONS DEPARTMENT CHAIR NOTE FAMILY WANTS TO PUT PATIENT ON TPN OR PPN. MD AWARE - NEEDS TO SPEAK WITH NEURO FIRST.
[2020-12-09] MEDS ORDERED: TPN/PPN PER PHARMACY IV PRN (18:30)
--- NOTE | 2020-12-09 18:38 | NUR ---
NURSE PRACTITIONER PER DIEM CLOSING NOTE PATIENT CURRENTLY LYING IN BED, NON-VERBAL. FAMILY AT BEDSIDE. ON 2L O2 VIA NASAL CANNULA - TOLERATING WELL. NO SOB NOTED. NO DISTRESS/DISCOMFORT NOTED. ON EXTERNAL R AND D LAB TECHNICIAN READING - SR 88. IV ACCESS TO RIGHT UA - MIDLINE - PATENT AND INTACT. SAFETY MEASURES IN PLACE. CALL LIGHT WITHIN REACH. WILL ENDORSE TO PEST CONTROLLER NURSE FOR MERARI.
--- NOTE | 2020-12-09 19:45 | NUR ---
Patient is alert by open eyes to loud sound or light touch, non-verbal. ST n monitor at this time. No signs of distress seen. Resting in bed comfortably. Safety measures in place. Jim prominences offloaded. low air loss mattress. RICHARD midline patent and flushed. Will anticipate patient needs.
[2020-12-09 20:52] VITALS: BP 107/62
[2020-12-09] MEDS: MIRTAZAPINE 30 MG PO SCH (22:00)
--- NOTE | 2020-12-09 22:00 | NUR ---
Patient refused to open mouth for 2200 remeron. Non-admin.
--- NOTE | 2020-12-09 22:10 | NUR ---
Contacted MD per patient family request for IVF d/t patient not eating or drinking all day. MD said okay for D5Ns at 75cc/hr. will input order and admin.
[2020-12-09] MEDS ORDERED: IV D5/ 0.9% NACL 1,000 ML IV PRN (22:30)
[2020-12-10] VITALS: BP 120/62
[2020-12-10 00:04] VITALS: BP 112/48
[2020-12-10 04:00] VITALS: BP 115/50
[2020-12-10] MEDS: MEROPENEM 1 G in IV NS 0.9% 100 ML IV SCH ×3 (04:32→21:13)
--- NOTE | 2020-12-10 06:26 | NUR ---
BROACHING MACHINE OPERATOR CLOSING NOTES Patient has been sleeping intermittently. Alert to loud sounds and light touch by opening eyes, non-verbal. Not opening mouth to take anything PO. Tolerating D5NS at 75cc/hr to RICHARD midline. Wound care done. Turned q2h. kept clean and dry. All needs attended to by staff. No non-verbal indications of pain.
[2020-12-10 06:34] LABS: BASOPHILS % (AUTO) 1.3 % (0.0-2.0); EOSINOPHILS % (AUTO) 1.2 % (0.0-6.0); HEMATOCRIT 24 % (33-45); HEMOGLOBIN 8.1 g/dL (11.5-14.8); LYMPHOCYTES # (AUTO) 0.4 K/uL (0.8-4.8); LYMPHOCYTES % (AUTO) 19.3 % (20.0-44.0); MEAN CORPUSCULAR HGB CONC 34 g/dl (31.0-36.0); MEAN CORPUSCULAR VOLUME 100 fL (82-100); MONOCYTES # (AUTO) 0.2 K/uL (0.1-1.30); MONOCYTES % (AUTO) 9.1 % (2.0-12.0); NEUTROPHILS # (AUTO) 1.5 K/uL (1.8-8.9); NEUTROPHILS % (AUTO) 69.1 % (43.0-81.0); PLATELET COUNT (AUTO) 82 K/uL (150-450); RED BLOOD CELL COUNT(AUTO) 2.35 MIL/uL (4.0-5.2); WHITE BLOOD COUNT (AUTO) 2.2 K/uL (4.3-11.0)
[2020-12-10 06:58] LABS: ALANINE AMINOTRANSFERASE 31 U/L (12-78); ALBUMIN 2.4 g/dL (3.4-5.0); ALKALINE PHOSPHATASE 37 U/L (46-116); ASPARTATE AMINOTRANSFERASE 17 U/L (15-37); BILIRUBIN,TOTAL 0.6 mg/dL (0.2-1.0); CALCIUM, SERUM 8.5 mg/dL (8.5-10.1); CARBON DIOXIDE 29 mmol/L (21-32); CHLORIDE 104 mmol/L (98-107); CREATININE 0.5 mg/dL (0.6-1.3); GLUCOSE 93 mg/dL (74-106); SODIUM SERUM 139 mmol/L (136-145); TOTAL PROTEIN, SERUM 5.5 g/dL (6.4-8.2); UREA NITROGEN, BLOOD 6 mg/dL (7-18)
--- NOTE | 2020-12-10 08:02 | NUR ---
MARINE DESIGNER OPENING NOTES RECEIVED PATIENT IN BED, RESTING. NON-VERBAL. ON 2L O2 VIA NASAL CANNULA - TOLERATING WELL. NO SOB NOTED. NO DISTRESS/DISCOMFORT NOTED. ON EXTERNAL BOTTOM STEEP TENDER READING - SR 86. IV ACCESS TO RIGHT UA - MIDLINE, RUNNING D5NS @ 75CC/HR. SAFETY MEASURES IN PLACE. CALL LIGHT WITHIN REACH. WILL CONTINUE TO MONITOR.
[2020-12-10] MEDS: FOLIC ACID 1 MG TABLET PO SCH (09:00)
[2020-12-10] MEDS: PROSOURCE / PROSTAT (PYXIS) 30 ML UDC PO SCH ×3 (09:00→17:00)
[2020-12-10] MEDS: VENLAFAXINE 25 MG TABLET PO SCH (09:00)
[2020-12-10] MEDS: PANTOPRAZOLE 40 MG TABLET.DR PO SCH ×2 (09:00→17:00)
[2020-12-10] MEDS: DABIGATRAN ETEXILATE MESYLATE 150 MG CAPSULE PO SCH ×2 (09:00→17:00)
[2020-12-10] MEDS: HYDROGEL DRESSING 90 GM TUBE TP SCH (09:09)
--- NOTE | 2020-12-10 09:52 | NUR ---
WELLNESS INSTRUCTOR NOTE PATIENT NOT OPENING MOUTH FOR MEDICATIONS. UNABLE TO ADMINISTER 0900 MEDICATIONS.
[2020-12-10] MEDS ORDERED: DEXTROSE 50%-WATER 50 ML DISP.SYRIN IV PRN (12:00)
[2020-12-10] MEDS ORDERED: INSULIN REGULAR, HUMAN 100 UNIT/ML 3 ML VIAL SQ PRN (12:00)
[2020-12-10] MEDS: BLOOD SUGAR DIAGNOSTIC 1 EACH STRIP IN SCH ×2 (12:23→17:22)
[2020-12-10] MEDS ORDERED: TPN BAG #1 IV SCH (13:00)
[2020-12-10] MEDS ORDERED: IV D5/ 0.9% NACL 1,000 ML IV PRN (13:00)
--- NOTE | 2020-12-10 17:01 | NUR ---
DIRECTOR OPERATIONS BROADCAST NOTE PATIENT STILL REFUSES TO OPEN MOUTH FOR MEDICATION. 1700 MEDICATIONS NOT ADMINISTERED. DAUGHTER AT BEDSIDE.
--- NOTE | 2020-12-10 18:28 | NUR ---
HEEL SCORER CLOSING NOTE PATIENT CURRENTLY LYING IN BED, NON-VERBAL. FAMILY AT BEDSIDE. ON 2L O2 VIA NASAL CANNULA - TOLERATING WELL. NO SOB NOTED. NO DISTRESS/DISCOMFORT NOTED. ON EXTERNAL AWAKE OVERNIGHT MONITOR READING - ST 102. IV ACCESS TO RIGHT UA - MIDLINE - RUNNING PPN @ 30ML/HR. SAFETY MEASURES IN PLACE. CALL LIGHT WITHIN REACH. WILL ENDORSE TO POND WORKER NURSE FOR MERARI.
[2020-12-10 20:00] VITALS: BP 124/60
--- NOTE | 2020-12-10 20:00 | NUR ---
SPOUT LINER NOTES RECEIVED ON BED WITH HOB ELEVATED,NON VERBAL,OPEN EYES,FAMILY MEMBER AT BEDSIDE.PER FAMILY NO MORE BLOOD DRAW,CHARGE NURSE MAD AWARE.ON TPN AT 30ML PER HR RATE INFUSING VIA IV PUMP ON RIGHT UPPER MIDLINE.DNR/DNI STATUS,AWAITING HOSPICE EVALUATION.WILL CONTINUE TO MONITOR STATUS.
[2020-12-10 20:11] VITALS: BP 124/60
[2020-12-10] MEDS: MIRTAZAPINE 30 MG PO SCH ×2 (21:11→21:39)
--- NOTE | 2020-12-10 21:30 | NUR ---
PLASTIC PRODUCTION MACHINE SETTER NOTES MIRTAZAPINE 30MG HELD,NOT FULLY AWAKE,PRONE TO ASPIRATION,MEDS WASTED.
[2020-12-11] VITALS: BP 120/62
--- NOTE | 2020-12-11 | NUR ---
COMMERCIAL MARKETING SPECIALIST NOTES ACCU-CHECK BLOOD SUGAR CHECK 120,NO INSULIN COVERAGE
[2020-12-11] MEDS: BLOOD SUGAR DIAGNOSTIC 1 EACH STRIP IN SCH ×4 (00:15→17:33)
[2020-12-11 04:00] VITALS: BP 114/59
[2020-12-11 04:17] VITALS: BP 114/59
[2020-12-11] MEDS: MEROPENEM 1 G in IV NS 0.9% 100 ML IV SCH ×2 (04:50→12:18)
--- NOTE | 2020-12-11 05:45 | NUR ---
DOPE EDGER NOTES ACCU-CHECK BLOOD SUGAR CHECK 105,NO INSULIN COVERAGE.
--- NOTE | 2020-12-11 06:27 | NUR ---
PRESCHOOL ADVISER NOTES NO SIGNIFICANT CHANGE IN STATUS,OPEN EYES TO VERBAL STIMULI.TPN IN PROGRESS.POSSIBLE DC HOME TODAY UNDER HOSPICE.WILL ENDORSE TO DAY NURSE FOR MERARI.
--- NOTE | 2020-12-11 07:25 | NUR ---
BUSINESS TAXES SPECIALIST OPENING NOTES RECEIVED PATIENT IN BED, NON-VERBAL, OPENS EYES TO VERBAL STIMULI. ON 2L O2 VIA NASAL CANNULA - TOLERATING WELL. NO SOB NOTED. NO DISTRESS/DISCOMFORT NOTED. ON EXTERNAL BENCH LATHE OPERATOR READING - SR 86. IV ACCESS TO RIGHT UA - MIDLINE, RUNNING TPN AT 30CC/HR. SAFETY MEASURES IN PLACE. CALL LIGHT WITHIN REACH , SIDE RAILS UP X 2, BED ON LOWEST LOCKED POSITION, WILL CONTINUE TO MONITOR ACCORDINGLY.
[2020-12-11 08:00] VITALS: BP 145/93
[2020-12-11] MEDS: VENLAFAXINE 25 MG TABLET PO SCH (08:39)
[2020-12-11] MEDS: PANTOPRAZOLE 40 MG TABLET.DR PO SCH ×2 (08:39→17:00)
[2020-12-11] MEDS: FOLIC ACID 1 MG TABLET PO SCH (08:39)
[2020-12-11] MEDS: DABIGATRAN ETEXILATE MESYLATE 150 MG CAPSULE PO SCH ×2 (08:40→17:00)
[2020-12-11] MEDS: PROSOURCE / PROSTAT (PYXIS) 30 ML UDC PO SCH ×3 (08:47→17:00)
[2020-12-11] MEDS: HYDROGEL DRESSING 90 GM TUBE TP SCH (09:10)
[2020-12-11 12:05] LABS: BASOPHILS % (AUTO) 1.3 % (0.0-2.0); EOSINOPHILS % (AUTO) 1.1 % (0.0-6.0); HEMATOCRIT 26 % (33-45); HEMOGLOBIN 8.6 g/dL (11.5-14.8); LYMPHOCYTES # (AUTO) 0.4 K/uL (0.8-4.8); LYMPHOCYTES % (AUTO) 17.7 % (20.0-44.0); MEAN CORPUSCULAR HGB CONC 33 g/dl (31.0-36.0); MEAN CORPUSCULAR VOLUME 101 fL (82-100); MONOCYTES # (AUTO) 0.3 K/uL (0.1-1.30); MONOCYTES % (AUTO) 10.9 % (2.0-12.0); NEUTROPHILS # (AUTO) 1.7 K/uL (1.8-8.9); PLATELET COUNT (AUTO) 88 K/uL (150-450); RED BLOOD CELL COUNT(AUTO) 2.55 MIL/uL (4.0-5.2); WHITE BLOOD COUNT (AUTO) 2.4 K/uL (4.3-11.0)
--- NOTE | 2020-12-11 12:11 | NUR ---
RN NOTES BLOOD SUGAR CHECKED, RESULT 119, NO INSULIN COVERAGE NEEDED.
--- NOTE | 2020-12-11 12:35 | NUR ---
REFUSED MEDS PATIENT WON'T OPEN MOUTH FOR PROSOURCE. DAUGHTER AT BEDSIDE. EDUCATION PROVIDED.
[2020-12-11] MEDS ORDERED: TPN BAG #2 IV SCH (13:00)
[2020-12-11] MEDS ORDERED: TPN AA IV SCH (13:00)
[2020-12-11] MEDS ORDERED: TPN ADDITIVES IV SCH (13:00)
[2020-12-11] MEDS ORDERED: [UNRECOGNIZED DRUG - OTHER] IV SCH (13:00)
[2020-12-11 13:28] LABS: CALCIUM, SERUM 9.1 mg/dL (8.5-10.1); CARBON DIOXIDE 29 mmol/L (21-32); CHLORIDE 105 mmol/L (98-107); CREATININE 0.4 mg/dL (0.6-1.3); GLUCOSE 124 mg/dL (74-106); POTASSIUM 3.3 mmol/L (3.5-5.1); SODIUM SERUM 141 mmol/L (136-145); UREA NITROGEN, BLOOD 7 mg/dL (7-18)
[2020-12-11 15:39] LABS: ALANINE AMINOTRANSFERASE 36 U/L (12-78); ALBUMIN 2.4 g/dL (3.4-5.0); ALKALINE PHOSPHATASE 42 U/L (46-116); ASPARTATE AMINOTRANSFERASE 19 U/L (15-37); BILIRUBIN,TOTAL 0.5 mg/dL (0.2-1.0); TOTAL PROTEIN, SERUM 5.8 g/dL (6.4-8.2)
[2020-12-11 15:52] LABS: MAGNESIUM 2.2 mg/dL (1.8-2.4); PHOSPHORUS 2.2 mg/dL (2.5-4.9)
[2020-12-11] MEDS ORDERED: Sodium Phosphate 15 MMOL in IV NS 0.9% 250 ML IV ONE (17:00)
--- NOTE | 2020-12-11 17:14 | NUR ---
RN NOTES PER PATIENT'S DAUGHTER, PATIENT SEEMS TO HAVE DIFFICULTY SWALLOWING/PAIN UPON SWALLOWING. ST EVAL TRIGGERED.
--- NOTE | 2020-12-11 17:33 | NUR ---
RN NOTES BLOOD SUGAR CHECKED, RESULT 113, NO INSULIN COVERAGE NEEDED.
--- NOTE | 2020-12-11 18:44 | NUR ---
ORACLE TECHNICAL ARCHITECT CLOSING NOTES PATIENT IN BED, NON VERBAL, ON O2 VIA NC AT 2 LPM, SATURATING AT 98%, ON EXTERNAL MONITOR SHOWING SR HR AT 90'S. PATIENT IS TOTAL CARE. OPENS EYES TO NAME. IV ACCESS ON RICHARD MIDLINE INTACT AND PATENT WITH GOOD BLOOD RETURN. NOTED WITH GENERALIZED BRUISING, EDEMA ON UPPER EXTREMITIES NOTED , NO ACTIVE BLEEDING NOTED. TURNED AND REPOSITIONED PATIENT PER PROTOCOL. SAFETY PRECAUTIONS MAINTAINED: BED ON LOWEST LOCKED POSITION, SIDE RAILS UP X 2, CALL LIGHT WITHIN EASY REACH. ALL NEEDS ATTENDED AND MET. WILL ENDORSE TO ONCOMING SHIFT FOR MERARI.
[2020-12-11 20:00] VITALS: BP 131/77
--- NOTE | 2020-12-11 20:15 | NUR ---
DECK SPECIALIST OPENING NOTE PT A/OX1; OPENS EYES; APHASIC. ON O2 2LPM VIA NC; TOLERATING WELL WITH NO SOB. EXTERNAL CARDIAC TELE MONITOR READS SR 76. NO S/SX OF PAIN OR DISCOMFORT AT THIS TIME. RICHARD MIDLINE TPN @60ML/HR; PATENT AND INTACT. ALL NEEDS MET. SAFETY MEASURES IN PLACE: BED IS LOWEST LOCKED POSITION, SR UPX2, CALL LIGHT WITHIN EASY REACH. PT IN STABLE CONDITION, WILL CONTINUE PLAN OF CARE. Addendum: 12/11/20 at 2027 by LEONILA MENDEZ RN UPDATED: EXTERNAL CARDIAC TELE MONITOR READS ST AT 96
[2020-12-11] MEDS: MIRTAZAPINE 30 MG PO SCH (21:29)
[2020-12-12] VITALS: BP 103/63
[2020-12-12] MEDS: BLOOD SUGAR DIAGNOSTIC 1 EACH STRIP IN SCH ×3 (00:20→11:49)
[2020-12-12 04:00] VITALS: BP 125/64
[2020-12-12] MEDS ORDERED: TPN BAG #3 IV SCH (05:40)
--- NOTE | 2020-12-12 06:35 | NUR ---
RESEARCH RECRUITER CLOSING NOTE PT A/OX1; OPENS EYES; APHASIC. ON O2 2LPM VIA NC; TOLERATING WELL WITH NO SOB. EXTERNAL CARDIAC TELE MONITOR READS ST at 105 with BBB. NO S/SX OF PAIN OR DISCOMFORT AT THIS TIME. RICHARD MIDLINE; PATENT AND INTACT. ALL NEEDS MET. WOUND CARE TX KEPT C/D/I/. REPOSITIONED PT ACCORDINGLY PER PROTOCOL. SAFETY MEASURES IN PLACE: BED IN LOWEST LOCKED POSITION, SR UPX2, CALL LIGHT WITHIN EASY REACH BED ALARM ON. PT IN STABLE CONDITION, WILL ENDORSE PLAN OF CARE TO ONCOMING MORNING RN.
[2020-12-12 06:48] LABS: BASOPHILS % (AUTO) 0.9 % (0.0-2.0); EOSINOPHILS % (AUTO) 1.4 % (0.0-6.0); HEMATOCRIT 25 % (33-45); HEMOGLOBIN 8.6 g/dL (11.5-14.8); LYMPHOCYTES # (AUTO) 0.5 K/uL (0.8-4.8); LYMPHOCYTES % (AUTO) 18.1 % (20.0-44.0); MEAN CORPUSCULAR HGB CONC 34 g/dl (31.0-36.0); MEAN CORPUSCULAR VOLUME 100 fL (82-100); MONOCYTES # (AUTO) 0.3 K/uL (0.1-1.30); MONOCYTES % (AUTO) 11.2 % (2.0-12.0); NEUTROPHILS # (AUTO) 1.8 K/uL (1.8-8.9); NEUTROPHILS % (AUTO) 68.4 % (43.0-81.0); PLATELET COUNT (AUTO) 96 K/uL (150-450); RED BLOOD CELL COUNT(AUTO) 2.52 MIL/uL (4.0-5.2); WHITE BLOOD COUNT (AUTO) 2.6 K/uL (4.3-11.0)
--- NOTE | 2020-12-12 07:15 | NUR ---
SENIOR DATA ARCHITECT OPENING NOTES RECEIVED PATIENT IN BED, RESTING. NON-VERBAL. PATIENT IS BREATHING EVENLY AND NONLABORED ON 2L O2 VIA NASAL CANNULA - TOLERATING WELL. NO SOB NOTED. NO DISTRESS/DISCOMFORT NOTED. ON EXTERNAL BINDERY MACHINE SETTER/SET UP OPERATOR READING - SR 86. IV ACCESS TO RIGHT UA - MIDLINE, RUNNING TPN @ 60 ML/HR, SAFETY MEASURES IN PLACE. CALL LIGHT WITHIN REACH. WILL CONTINUE TO MONITOR.
[2020-12-12 07:57] LABS: ALANINE AMINOTRANSFERASE 30 U/L (12-78); ALBUMIN 2.3 g/dL (3.4-5.0); ALKALINE PHOSPHATASE 49 U/L (46-116); ASPARTATE AMINOTRANSFERASE 16 U/L (15-37); BILIRUBIN,TOTAL 0.5 mg/dL (0.2-1.0); CALCIUM, SERUM 8.5 mg/dL (8.5-10.1); CARBON DIOXIDE 31 mmol/L (21-32); CHLORIDE 103 mmol/L (98-107); CREATININE 0.4 mg/dL (0.6-1.3); GLUCOSE 120 mg/dL (74-106); POTASSIUM 3.2 mmol/L (3.5-5.1); SODIUM SERUM 139 mmol/L (136-145); TOTAL PROTEIN, SERUM 5.6 g/dL (6.4-8.2); UREA NITROGEN, BLOOD 9 mg/dL (7-18)
[2020-12-12] MEDS: PANTOPRAZOLE 40 MG TABLET.DR PO SCH (08:15)
[2020-12-12] MEDS: VENLAFAXINE 25 MG TABLET PO SCH (08:15)
[2020-12-12] MEDS: FOLIC ACID 1 MG TABLET PO SCH (08:15)
[2020-12-12] MEDS: DABIGATRAN ETEXILATE MESYLATE 150 MG CAPSULE PO SCH (08:17)
[2020-12-12] MEDS: PROSOURCE / PROSTAT (PYXIS) 30 ML UDC PO SCH ×2 (08:25→12:14)
[2020-12-12] MEDS: HYDROGEL DRESSING 90 GM TUBE TP SCH (08:25)
[2020-12-12 08:37] VITALS: BP 124/67
[2020-12-12 08:38] LABS: MAGNESIUM 2.1 mg/dL (1.8-2.4); PHOSPHORUS 2.1 mg/dL (2.5-4.9)
[2020-12-12] MEDS ORDERED: NITR100C6 PO (11:18)
[2020-12-12] MEDS ORDERED: APIX5TAB PO (11:20)
[2020-12-12] MEDS ORDERED: PANT40TA2 PO (11:20)
[2020-12-12] MEDS ORDERED: DABI150C PO (11:47)
--- NOTE | 2020-12-12 11:50 | NUR ---
RN NOTE BLOOD SUGAR 134, FAMILY ASKED TO REFUSE INSULIN DUE TO LOW PO INTAKE, WILL CONTINUE TO MONITOR
[2020-12-12 11:56] VITALS: BP 115/61
--- NOTE | 2020-12-12 12:53 | NUR ---
PROFESSIONAL SECURITY OFFICER NOTE RECEIVED ORDER FOR DISCHARGE, PATIENT IS A/O X1 PATIENT IS BREATHING EVENLY AND NONLABORED ON 2LPM VIA NASAL CANNULA. PATIENT DOES NOT SHOW ANY SIGNS OF DISTRESS. PATIENT DOES NOT SHOW ANY SIGNS OF PAIN AT THIS TIME. DISCHARGE INSTRUCTIONS WERE GIVEN BOTH IN WRITTEN FORM AND VERBALLY TO DAUGHTER AND HOSPICE TEAM. DAUGHTER VERBALIZED UNDERSTANDING. PATIENT'S IV ACCESS WAS REMOVED CATHETER TIP INTACT, AND PRESSURE DRESSING APPLIED, NO SIGNS OF BLEEDING NOTED. PATIENT LEFT FACILITY IN STABLE CONDITION VIA AMBULANCE PROGRAM EVALUATOR 2 PROGRAM EVALUATOR PRESENT
== END 2020-12-12 12:54 | disposition hospice, home (50) | DRG 689 ==
LOC: ER 14:11 → TELE 18:09
PROVIDERS: ATTEND Internal Medicine
PROC: 05HB33Z Insertion of Infusion Device into Right Basilic Vein, Percutaneous Approach (ICD-10-PCS; principal; 2020-12-01)
PROC: 30233N1 Transfusion of Nonautologous Red Blood Cells into Peripheral Vein, Percutaneous Approach (ICD-10-PCS; 2020-12-01)
DX: N39.0 Urinary tract infection, site not specified (principal); L89.153 Pressure ulcer of sacral region, stage 3; L89.323 Pressure ulcer of left buttock, stage 3; L89.313 Pressure ulcer of right buttock, stage 3; E43 Unspecified severe protein-calorie malnutrition; G93.41 Metabolic encephalopathy; C79.31 Secondary malignant neoplasm of brain; D61.818 Other pancytopenia; I82.412 Acute embolism and thrombosis of left femoral vein; C79.51 Secondary malignant neoplasm of bone; C77.3 Secondary and unspecified malignant neoplasm of axilla and upper limb lymph nodes; I31.3 Pericardial effusion (noninflammatory); Z20.822 Contact with and (suspected) exposure to COVID-19; Z79.01 Long term (current) use of anticoagulants; Z79.899 Other long term (current) drug therapy; Z98.890 Other specified postprocedural states; B96.20 Unspecified Escherichia coli [E. coli] as the cause of diseases classified elsewhere; Z92.3 Personal history of irradiation; Z90.13 Acquired absence of bilateral breasts and nipples; Z85.3 Personal history of malignant neoplasm of breast; K52.9 Noninfective gastroenteritis and colitis, unspecified; K83.8 Other specified diseases of biliary tract; G93.89 Other specified disorders of brain; E87.6 Hypokalemia; I10 Essential (primary) hypertension; I67.2 Cerebral atherosclerosis; K57.30 Diverticulosis of large intestine without perforation or abscess without bleeding; Z92.21 Personal history of antineoplastic chemotherapy
CPT/HCPCS: 36410; 36415; 70450-TC; 70553-TC; 71045-TC; 71270-TC; 74178; 74181-TC; 76700-TC; 80048-TC; 80053-TC; 80061-TC; 80076-TC; 80202-TC; 81001; 82272-TC; 82378; 82728-TC; 82784; 82962-TC; 83540-TC; 83735-TC; 84100-TC; 84155; 84165; 84443-TC; 85025-TC; 85396; 85610-TC; 85730-TC; 86140-TC; 86225; 86235; 86301; 86334; 86431-TC; 86706; 86803; 86850-TC; 87040-TC; 87081-TC; 87086-TC; 87186-TC; 87340; 87806; 92526; 92611-TC; 93307-TC; 93970-TC; 95819-TC; A4216; A6248; A6253; A6403; A9563; A9575; C9803; G0378; J0696; J1200; J1644; J1815; J1940; J1953; J2185; J2405; J2543; J3370; J3475; J3480; J7030; J7040; J7042; J7050; J7060; P9016; P9047; Q9967